=== PATIENT | female | born 1975 | race Caucasian/White ===

== ENCOUNTER 2018-10-18 20:17 | Emergency (ER) | payer OTHER ==
[2018-10-18] MEDS ORDERED: Sodium Chloride 0.9% 10 ML Syringe FLUSH PRN (20:29)
[2018-10-18] MEDS ORDERED: Ondansetron 4 MG/2 ML SDV IVPUSH ONE (20:29)
[2018-10-18] MEDS ORDERED: Sodium Chloride 0.9% 1,000 ML IV ONE (20:29)
[2018-10-18] MEDS ORDERED: Sodium Chloride 0.9% 2.5 ML Syringe FLUSH PRN (20:29)
[2018-10-18] MEDS ORDERED: Morphine 2 MG/ML Syringe IVPUSH ONE (20:29)
[2018-10-18] MEDS ORDERED: Ketorolac 30 MG/ML SDV IVPUSH ONE (20:29)
--- NOTE | 2018-10-18 20:34 | EDM.PDOC ---
ED HPI GENERAL MEDICAL PROBLEM - General Chief Complaint: Abdominal Pain Stated Complaint: PAIN ON THE RT SIDE Time Seen by Provider: 10/18/18 20:24 - History of Present Illness INITIAL COMMENTS - FREE TEXT/NARRATIVE: HISTORY AND PHYSICAL: History of present illness: The patient is a 43-year-old female with a history of a cholecystectomy and a bilateral tubal ligation but no other GI or gynecologic problems and presents with onset of periumbilical and right lower quadrant pain this afternoon. The patient said that starting 2 days ago she had some discomfort on the right side that she thought might be a urinary tract infection and she was in the clinic today seeing Dr. Jenkins for an annual visit and had a UA which was negative. Patient said that during her pelvic exam she had no tenderness in the uterus or the adnexa and he did not comment that there was anything abnormal on his exam. She went and did some things at her child's school and then suddenly had onset of periumbilical pain pain near her old gallbladder incisions /and pain just above her umbilicus which doubled her over and then seemed to let up and now the pain has been constant in the periumbilical area and radiation to the right lower quadrant. She has no flank pain and no urinary complaints such as dysuria frequency or urgency. She had nausea this evening without vomiting and she says she has had a low-grade temp of 99 at home. She has had some cough and cold symptoms but nothing significant. Review of systems: As per history of present illness and below otherwise all systems reviewed and negative. Past medical history: As per history of present illness and as reviewed below otherwise noncontributory. Surgical history: As per history of present illness and as reviewed below otherwise noncontributory. Social history: No reported history of drug or alcohol abuse. Family history: As per history of present illness and as reviewed below otherwise noncontributory. Physical exam: General: Well-developed well-nourished female who is nontoxic and vital signs were noted by me HEENT: Atraumatic, normocephalic, negative for conjunctival pallor or scleral icterus, mucous membranes moist, throat clear, neck supple, nontender, trachea midline. Lungs: Clear to auscultation, breath sounds equal bilaterally, chest nontender. Heart: S1S2, regular rate and rhythm no overt murmurs Abdomen: Soft, nondistended, bowel sounds are slightly hypoactive and there is some tympany on percussion on the right side without rebound or guarding. On palpation there is some mild tenderness in the periumbilical area and the right lower quadrant without rebound or guarding. Negative for masses or hepatosplenomegaly. Negative for costovertebral tenderness. Pelvis: Stable nontender. Genitourinary: Deferred. Rectal: Deferred. Extremities: Atraumatic, negative for cords or calf pain. Neurovascular unremarkable. Neuro: Awake, alert, oriented. Cranial nerves II through XII unremarkable. Cerebellum unremarkable. Motor and sensory unremarkable throughout. Exam nonfocal. Diagnostics: CBC CMP UA with reflex CT scan of the abdomen and pelvis Therapeutics: IV fluids Toradol morphine and Zofran She is aware of testing results and need for follow-up with Dr. Jenkins and over- the-counter meds she can use. Impression: Right lower abdominal pain/ovarian cyst Definitive disposition and diagnosis as appropriate pending reevaluation and review of above. abdominal Pain Score (Numeric/FACES): 8 - Related Data Allergies Allergy/AdvReac Type Severity Reaction Status Date / Time Penicillins Allergy Arrhythmias Verified 10/18/18 20:20 Home Meds: Home Meds . 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: Musculoskeletal History: Reports: None Neurological History: Reports: None Psychiatric History: Reports: None Endocrine/Metabolic History: Reports: None Hematologic History: Reports: None Dermatologic History: Reports: None - Infectious Disease History Infectious Disease History: Reports: Chicken Pox - Past Surgical History GI Surgical History: Reports: Cholecystectomy Social & Family History - Family History Family Medical History: Noncontributory - Tobacco Use Smoking Status *Q: Current Some Day Smoker Years of Tobacco use: 10 Packs/Tins Daily: 0.1 - Caffeine Use Caffeine Use: Reports: Coffee - Recreational Drug Use Recreational Drug Use: No ED ROS GENERAL - Review of Systems Review Of Systems: ROS reveals no pertinent complaints other than HPI. ED EXAM, GENERAL - Physical Exam Exam: See Below (See dictation) Course - Vital Signs Last Recorded V/S: Last Vital Signs Temp 36.7 C 10/18/18 22:25 Pulse 81 05/13/19 22:25 Resp 18 10/18/18 22:25 BP 112/73 10/18/18 22:25 Pulse Ox 98 10/18/18 22:25 - Orders/Labs/Meds Orders: Active Orders 24 hr Category Date Time Status Sodium Chloride 0.9% [Saline Flush] Med 10/18/18 20:29 Active 10 ml FLUSH ASDIRECTED PRN Sodium Chloride 0.9% [Saline Flush] Med 10/18/18 20:29 Active 2.5 ml FLUSH ASDIRECTED PRN Saline Lock Insert [OM.PC] Stat Oth 10/18/18 20:29 Ordered Medication Orders Sodium Chloride (Saline Flush) 10 ml FLUSH ASDIRECTED PRN PRN Reason: Keep Vein Open Sodium Chloride (Saline Flush) 2.5 ml FLUSH ASDIRECTED PRN PRN Reason: Keep Vein Open Labs: Laboratory Tests 10/18/18 10/18/18 10/18/18 Range/Units 20:25 20:35 20:35 WBC 5.33 (4.0-11.0) K/uL RBC 4.27 L (4.30-5.90) M/uL Hgb 13.0 (12.0-16.0) g/dL Hct 39.1 (36.0-46.0) % MCV 91.6 (80.0-98.0) fL MCH 30.4 (27.0-32.0) pg MCHC 33.2 (31.0-37.0) g/dL RDW Std Deviation 45.1 (28.0-62.0) fl RDW Coeff of Ana 13 (11.0-15.0) % Plt Count 251 (150-400) K/uL MPV 10.40 (7.40-12.00) fL Neut % (Auto) 51.8 (48.0-80.0) % Lymph % (Auto) 34.5 (16.0-40.0) % Bee % (Auto) 13.1 (0.0-15.0) % Eos % (Auto) 0.2 (0.0-7.0) % Baso % (Auto) 0.4 (0.0-1.5) % Neut # (Auto) 2.8 (1.4-5.7) K/uL Lymph # (Auto) 1.8 (0.6-2.4) K/uL Bee # (Auto) 0.7 (0.0-0.8) K/uL Eos # (Auto) 0.0 (0.0-0.7) K/uL Baso # (Auto) 0.0 (0.0-0.1) K/uL Nucleated RBC % 0.0 /100WBC Nucleated RBCs # 0 K/uL Sodium 143 (136-145) mmol/L Potassium 3.6 (3.5-5.1) mmol/L Chloride 105 (98-107) mmol/L Carbon Dioxide 24.0 (21.0-32.0) mmol/L BUN 9 (7.0-18.0) mg/dL Creatinine 0.7 (0.6-1.0) mg/dL Est Cr Clr Drug Dosing 84.84 mL/min Estimated GFR (MDRD) > 60.0 ml/min Glucose 121 H (74-106) mg/dL Calcium 9.1 (8.5-10.1) mg/dL Total Bilirubin 0.3 (0.2-1.0) mg/dL AST 11 L (15-37) IU/L ALT 21 (14-63) IU/L Alkaline Phosphatase 39 L (46-116) U/L Total Protein 8.0 (6.4-8.2) g/dL Albumin 4.5 (3.4-5.0) g/dL Globulin 3.5 (2.6-4.0) g/dL Albumin/Globulin Ratio 1.3 (0.9-1.6) Urine Color YELLOW Urine Appearance CLEAR Urine pH 5.5 (5.0-8.0) Ur Specific [place] <= 1.005 (1.001-1.035) Urine Protein NEGATIVE (NEGATIVE) mg/dL Urine Glucose (UA) NEGATIVE (NEGATIVE) mg/dL Urine Ketones NEGATIVE (NEGATIVE) mg/dL Urine Occult Blood NEGATIVE (NEGATIVE) Urine Nitrite NEGATIVE (NEGATIVE) Urine Bilirubin NEGATIVE (NEGATIVE) Urine Urobilinogen 0.2 (<2.0) EU/dL Ur Leukocyte Esterase NEGATIVE (NEGATIVE) Meds: Medications Generic Name Dose Route Start Last Admin Trade Name Freq PRN Reason Stop Dose Admin Sodium Chloride 10 ml 10/18/18 20:29 Saline Flush FLUSH ASDIRECTED PRN Keep Vein Open Sodium Chloride 2.5 ml 10/18/18 20:29 Saline Flush FLUSH ASDIRECTED PRN Keep Vein Open Discontinued Medications Generic Name Dose Route Start Last Admin Trade Name [place] PRN Reason Stop Dose Admin Sodium Chloride 1,000 mls @ 999 mls/hr 10/18/18 20:29 10/18/18 20:36 Normal Saline IV 10/18/18 21:29 999 mls/hr STAT ONE Administration Iopamidol 100 ml 10/18/18 21:59 10/18/18 22:00 Isovue Multipack-370 (76%) IVPUSH 10/18/18 22:00 100 ml ONETIME STA Administration Ketorolac Tromethamine 30 mg 10/18/18 20:29 10/18/18 20:36 Toradol IVPUSH 10/18/18 20:30 30 mg ONETIME ONE Administration Morphine Sulfate 2 mg 10/18/18 20:29 10/18/18 20:36 Morphine IVPUSH 10/18/18 20:30 2 mg ONETIME ONE Administration Ondansetron HCl 4 mg 10/18/18 20:29 10/18/18 20:36 Zofran IVPUSH 10/18/18 20:30 4 mg ONETIME ONE Administration Departure - Departure Time of Disposition: 22:33 Disposition: Home, Self-Care 01 Condition: Good Clinical Impression: Abdominal pain Qualifiers: Abdominal location: right lower quadrant Qualified Code(s): R10.31 - Right lower quadrant pain Ovarian cyst Qualifiers: Laterality: right Qualified Code(s): N83.201 - Unspecified ovarian cyst, right side - Discharge Information Referrals: PCP,None [Primary Care Provider] - Forms: ED Department Discharge Additional Instructions: The following information is given to patients seen in the emergency department who are being discharged to home. This information is to outline your options for follow-up care. We provide all patients seen in our emergency department with a follow-up referral. The need for follow-up, as well as the timing and circumstances, are variable depending upon the specifics of your emergency department visit. If you don't have a primary care physician on staff, we will provide you with a referral. We always advise you to contact your personal physician following an emergency department visit to inform them of the circumstance of the visit and for follow-up with them and/or the need for any referrals to a consulting specialist. The emergency department will also refer you to a specialist when appropriate. This referral assures that you have the opportunity for followup care with a specialist. All of these measure are taken in an effort to provide you with optimal care, which includes your followup. Under all circumstances we always encourage you to contact your private physician who remains a resource for coordinating your care. When calling for followup care, please make the office aware that this follow-up is from your recent emergency room visit. If for any reason you are refused follow-up, please contact the [facility] emergency department at and ask to speak to the emergency department charge nurse. [facility] [address] [address] Push hydration and use [id number] Aleve/Naprosyn for pain management as well as Tylenol if needed. Please call and schedule a follow-up appointment in the clinic to reevaluate this cyst in 4-6 weeks. Eat a bland diet for the next 24 hours and return to ER as needed and as discussed - My Orders Last 24 Hours: My Active Orders 10/18/18 20:29 Sodium Chloride 0.9% [Saline Flush] 10 ml FLUSH ASDIRECTED PRN Sodium Chloride 0.9% [Saline Flush] 2.5 ml FLUSH ASDIRECTED PRN Saline Lock Insert [OM.PC] Stat - Assessment/Plan Last 24 Hours: My Active Orders 10/18/18 20:29 Sodium Chloride 0.9% [Saline Flush] 10 ml FLUSH ASDIRECTED PRN Sodium Chloride 0.9% [Saline Flush] 2.5 ml FLUSH ASDIRECTED PRN Saline Lock Insert [OM.PC] Stat
[2018-10-18 21:12] LABS: CHLORIDE,CL 105 mmol/L (98-107); SODIUM,NA 143 mmol/L (136-145)
[2018-10-18] MEDS ORDERED: Iopamidol 755 MG/ML 500 ML Multipack Bottle IVPUSH STA (21:59)
[2018-10-18 22:25] VITALS: BP 112/73
--- NOTE | 2018-10-18 22:30 | CT ---
INDICATION: Umbilical and right lower quadrant pain for 3 days TECHNIQUE: CT abdomen and pelvis acquired with 100 cc Isovue 370 IV contrast. COMPARISON: None FINDINGS: Lower chest: Unremarkable. Liver: Unremarkable. Spleen: Unremarkable. Pancreas: Unremarkable. Gallbladder and bile ducts: Status post cholecystectomy. Adrenal glands: Unremarkable. Kidneys: Unremarkable. GI tract: Unremarkable. Appendix is normal. Vascular structures: Unremarkable. Lymph nodes: Unremarkable. Miscellaneous: Unremarkable. No free air or significant free fluid. Pelvic Organs: 1.9 cm cystic lesion in the right adnexa. Bones: Unremarkable for age. IMPRESSION: Normal appendix. No acute intra-abdominal inflammatory process identified. Cystic lesion in the right adnexa may represent a physiologic ovarian cyst. Consider pelvic ultrasound for further evaluation if clinically indicated. Status post cholecystectomy. Please note that all CT scans at this facility use dose modulation, iterative reconstruction, and/or weight-based dosing when appropriate to reduce radiation dose to as low as reasonably achievable. Dictated by Alanis Miranda MD @ Oct 18 2018 10:20PM Signed by Dr. Alanis Miranda @ Oct 18 2018 10:27PM
== END 2018-10-18 22:45 | disposition home or self-care (01) ==
LOC: MW.ED 20:17
DX: N83.201 Unspecified ovarian cyst, right side (principal); F17.210 Nicotine dependence, cigarettes, uncomplicated; Z88.0 Allergy status to penicillin
CPT/HCPCS: 36415; 74177; 80053; 81003; 85025; 96361; 96374; 96375; 99284; J1885; J2270; J2405; J7040; Q9967

== ENCOUNTER 2019-12-01 10:50 | Day surgery (SDC) | payer BC, OTHER ==
[~2019-12-01 10:50] MED LIST: Lactated Ringers 1,000 ML IV SCH; Sodium Chloride 0.9% 10 ML SDV IV PRN; Sodium Chloride 0.9% 10 ML Syringe FLUSH PRN; Sodium Chloride 0.9% 2.5 ML Syringe FLUSH PRN
--- NOTE | 2019-12-01 12:32 | PCM.PREANE ---
Preanesthetic Assessment - Anesthesia/Transfusion/Family Hx Anesthesia History: Prior Anesthesia Without Reaction Family History of Anesthesia Reaction: No Transfusion History: No Prior Transfusion(s) Intubation History: Unknown - Review of Systems General: No Symptoms Pulmonary: No Symptoms Cardiovascular: No Symptoms Gastrointestinal: Abdominal Pain, Other (change in bowel habbits) Neurological: No Symptoms Other: Reports: None - Physical Assessment Vital Signs: Last Vital Signs Temp 37.3 C 12/01/19 11:23 Pulse 106 H 12/01/19 11:23 Resp 16 12/01/19 11:23 BP 125/84 12/01/19 11:23 Pulse Ox 7 L 12/01/19 11:23 Height: 1.6 m Weight: 54.431 kg ASA Class: 2 Mental Status: Alert & Oriented x3 Airway Class: Mallampati = 1 Dentition: Reports: Normal Dentition Thyro-Mental Finger Breadths: 3 Mouth Opening Finger Breadths: 3 ROM/Head Extension: Full Lungs: Clear to Auscultation, Normal Respiratory Effort Cardiovascular: Regular Rate, Regular Rhythm - Lab Values: Laboratory Last Values Urine HCG, Qual NEGATIVE (NEGATIVE) 12/01/19 11:00 - Allergies Allergies/Adverse Reactions: Allergies Allergy/AdvReac Type Severity Reaction Status Date / Time Penicillins Allergy Arrhythmias Verified 12/01/19 11:22 sulfamethoxazole Allergy Swelling/body Verified 12/01/19 11:22 [From Bactrim] aches trimethoprim [From Bactrim] Allergy Swelling/body Verified 12/01/19 11:22 aches - Blood Blood Available: No - Anesthesia Plan Pre-Op Medication Ordered: None - Acknowledgements Anesthesia Type Planned: MAC Pt an Appropriate Candidate for the Planned Anesthesia: Yes Alternatives and Risks of Anesthesia Discussed w Pt/Guardian: Yes Pt/Guardian Understands and Agrees with Anesthesia Plan: Yes PreAnesthesia Questionnaire HEENT History: Reports: None Cardiovascular History: Reports: Other (See Below) Other Cardiovascular History: "low blood pressure", palpatations in the past when on control pills, none sice Respiratory History: Reports: None Gastrointestinal History: Reports: GERD Other Gastrointestinal History: intermittent epigastric pain Genitourinary History: Reports: UTI, Recurrent 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: Musculoskeletal History: Reports: None Neurological History: Reports: Migraines Psychiatric History: Reports: Anxiety Endocrine/Metabolic History: Reports: None Hematologic History: Reports: None Immunologic History: Reports: None Oncologic (Cancer) History: Reports: None Dermatologic History: Reports: None - Infectious Disease History Infectious Disease History: Reports: Chicken Pox - Past Surgical History Head Surgeries/Procedures: Reports: None HEENT Surgical History: Reports: None Cardiovascular Surgical History: Reports: None Respiratory Surgical History: Reports: None GI Surgical History: Reports: Cholecystectomy Female Surgical History: Reports: Tubal Ligation Endocrine Surgical History: Reports: None Neurological Surgical History: Reports: None Musculoskeletal Surgical History: Reports: None Oncologic Surgical History: Reports: None Dermatological Surgical History: Reports: None - SUBSTANCE USE Smoking Status *Q: Light Tobacco Smoker Tobacco Use Within Last Twelve Months: Cigarettes Recreational Drug Type: Reports: Marijuana/Hashish Recreational Drug Last Use: 1 week ago - HOME MEDS Home Medications: Home Meds Esomeprazole Magnesium [Nexium] 40 mg PO DAILY 11/25/19 [History] Lactobacillus Acidophilus [Probiotic] 1 tab PO DAILY 11/25/19 [History] - CURRENT (IN HOUSE) MEDS Current Meds: Current Medications Lactated Ringer's (Ringers, Lactated) 1,000 mls @ 125 mls/hr IV ASDIRECTED BHAVIN Last Admin: 12/01/19 11:22 Dose: 125 mls/hr Documented by: Sodium Chloride (Saline Flush) 10 ml FLUSH ASDIRECTED PRN PRN Reason: Keep Vein Open Sodium Chloride (Saline Flush) 2.5 ml FLUSH ASDIRECTED PRN PRN Reason: Keep Vein Open Sodium Chloride (Saline Flush) 10 ml FLUSH ASDIRECTED PRN PRN Reason: Keep Vein Open Sodium Chloride (Saline Flush) 2.5 ml FLUSH ASDIRECTED PRN PRN Reason: Keep Vein Open Sodium Chloride (Normal Saline) 10 ml IV ASDIRECTED PRN PRN Reason: IV Use
[2019-12-01] MEDS ORDERED: Propofol 200 MG/20 ML SDV ONE (13:09)
[2019-12-01] MEDS ORDERED: Lidocaine 2% 5 ML SDV ONE (13:09)
[2019-12-01] MEDS ORDERED: fentaNYL 100 MCG/2 ML SDV ONE (13:20)
[2019-12-01] MEDS ORDERED: Midazolam 1 MG/ML 2 ML SDV ONE (13:21)
--- NOTE | 2019-12-01 14:01 | PCM.OPNOTE ---
- General Post-Op/Procedure Note Date of Surgery/Procedure: 12/01/19 Operative Procedure(s): Diagnostic EGD and colonoscopy Findings: Normal EGD and colonoscopy Pre Op Diagnosis: Change in bowel habits, reflux Post-Op Diagnosis: same Anesthesia Technique: MAC Primary Surgeon: Tami Proctor Condition: Good
--- NOTE | 2019-12-01 14:20 | PCM.POSTAN ---
POST ANESTHESIA ASSESSMENT - MENTAL STATUS Mental Status: Alert, Oriented - VITAL SIGNS Vital Signs: Last Vital Signs Temp 36.4 C 12/01/19 13:57 Pulse 77 12/01/19 14:12 Resp 18 12/01/19 14:12 BP 101/62 12/01/19 14:12 Pulse Ox 98 12/01/19 14:12 - RESPIRATORY Respiratory Status: Respiratory Rate WNL, Airway Patent, O2 Saturation Stable - CARDIOVASCULAR CV Status: Pulse Rate WNL, Blood Pressure Stable - GASTROINTESTINAL GI Status: No Symptoms - PAIN Pain Score: 0 - POST OP HYDRATION Hydration Status: Adequate & Stable - OBSERVATIONS Free Text/Narrative:: No anesthesia complications
--- NOTE | 2019-12-01 14:41 | PCM48HPAN ---
Post Anesthesia Note - EVALUATION WITHIN 48HRS OF ANESTHETIC Vital Signs in Normal Range: Yes Patient Participated in Evaluation: Yes Respiratory Function Stable: Yes Airway Patent: Yes Cardiovascular Function Stable: Yes Hydration Status Stable: Yes Pain Control Satisfactory: Yes Nausea and Vomiting Control Satisfactory: Yes Mental Status Recovered: Yes Vital Signs: Last Vital Signs Temp 36.4 C 12/01/19 13:57 Pulse 71 12/01/19 14:17 Resp 14 12/01/19 14:17 BP 104/63 12/01/19 14:17 Pulse Ox 99 12/01/19 14:17 - COMMENTS/OBSERVATIONS Free Text/Narrative:: Doing well.
[2019-12-01] MEDS ORDERED: Alum Hydrox/Mag Hydrox/Simeth 15 ML, Lidocaine 2% 5 ML PO ONE ×2 (14:59)
[2019-12-01 15:17] VITALS: BP 107/77; PULSE 75
--- NOTE | 2019-12-01 20:38 | OR ---
SURGEON: TAMI PROCTOR MD DATE OF PROCEDURE: 12/01/2019 PREOPERATIVE DIAGNOSES: Epigastric abdominal pain, change in bowel habits. POSTOPERATIVE DIAGNOSES: Epigastric abdominal pain, change in bowel habits. PROCEDURE PERFORMED: Diagnostic esophagogastroduodenoscopy and colonoscopy. PRIMARY SURGEON: Tami Proctor MD ANESTHESIA: MAC. INSTRUMENT USED: Olympus endoscope and colonoscope. EXTENT OF EXAM: To the second portion of duodenum, to the cecum. PREPARATION: Good. LIMITATIONS: None. INDICATIONS FOR EXAMINATION: The patient is a 44-year-old female who presented to my office with intermittent epigastric pain as well as a change in her bowel habits. The decision was made to proceed with diagnostic EGD and colonoscopy. The patient and I discussed the procedures, expected perioperative course; and risks including bleeding, infection, or damage to surrounding structures. She verbalized understanding and wishes to proceed. PROCEDURE IN DETAIL: The patient was brought into the endoscopy suite and placed in the left lateral decubitus position. A time-out was completed verifying the patient's name, age, date of , allergies, and procedure to be performed. Monitored anesthesia care was induced and a bite block was placed in the patient's mouth. Continuous oxygen was provided via nasal cannula throughout the procedure. After adequate sedation was achieved, a well-lubricated endoscope was placed in the patient's mouth and advanced under direct visualization to the second portion of duodenum. This appeared normal and a photograph was taken. The scope was then fully withdrawn while examining the color, texture, anatomy, and integrity of the mucosa of the upper GI tract. The duodenal mucosa appeared healthy and pink with no evidence of ulceration or inflammation. The scope was brought into the stomach and a photograph was taken of the pylorus and GE junction. Both appeared anatomically normal. The gastric mucosa appeared normal with no evidence of inflammation or ulceration. Biopsies were taken of the gastric antrum, body, and fundus and sent for histologic review and H. pylori testing. The scope was then brought into the distal esophagus. A photograph was taken of normal-appearing Z-line. The esophageal mucosa was closely inspected, but no pathology was identified. The scope was removed and this portion of procedure was terminated. A digital rectal exam was performed. This exam was within normal limits. A well-lubricated colonoscope was inserted in the rectum and advanced under direct visualization to the level of the cecum. The patient had a somewhat tortuous colon, but the cecum was reached safely. A photograph was taken of the cecal cap as well as with the scope retroflexed within the cecum. The scope was then fully withdrawn while examining the color, texture, anatomy, and integrity of the mucosa from the cecum to the anal canal. The patient's mucosa grossly appeared normal. There was a slight amount of irritation within the rectum. Biopsies were taken of the transverse colon, sigmoid colon, as well as the rectum and sent for histologic review. Otherwise, the colon appeared normal. The scope was retroflexed within the rectum to allow visualization of the anal canal opening. This appeared normal and a photograph was taken. The scope was straightened out and fully withdrawn. The cecum to anus time was 12 minutes. The patient tolerated the procedure well and was transferred to the PACU in stable condition. ENDOSCOPIC DIAGNOSES: Epigastric abdominal pain, change in bowel habits. RECOMMENDATIONS: Follow up in clinic in 2 weeks to discuss the pathology results and any further steps in treatment. ELAINE RIVERA /[id number]
== END 2019-12-01 15:00 | disposition home or self-care (01) ==
LOC: MW.SDS 10:50
PROVIDERS: ATTEND Surgery
DX: R10.13 Epigastric pain (principal); R19.4 Change in bowel habit; K21.9 Gastro-esophageal reflux disease without esophagitis; F41.9 Anxiety disorder, unspecified; F17.210 Nicotine dependence, cigarettes, uncomplicated; Z88.0 Allergy status to penicillin; Z88.2 Allergy status to sulfonamides; Z88.1 Allergy status to other antibiotic agents; Z79.899 Other long term (current) drug therapy
CPT/HCPCS: 43239; 45380; 81025; J2001; J2250; J2704; J3010; J7120; 88305; 88312

== ENCOUNTER 2023-06-27 10:08 | Emergency (ER) | payer BC ==
[2023-06-27] MEDS ORDERED: Ondansetron 4 MG/2 ML SDV IVPUSH ONE (10:45)
[2023-06-27] MEDS ORDERED: Sodium Chloride 0.9% 1,000 ML IV ONE (10:45)
[2023-06-27] MEDS ORDERED: Meclizine 25 MG Tab PO ONE (10:45)
[2023-06-27 11:14] LABS: BASOPHILS ABSOLUTE AUTO 0.01 K/uL (0.00-0.20); BASOPHILS PERCENT AUTO 0.2 % (0.0-1.0); EOSINOPHILS ABSOLUTE AUTO 0.07 K/uL (0.00-0.45); EOSINOPHILS PERCENT AUTO 1.1 % (0.0-6.0); HEMATOCRIT 34.2 % (37.0-47.0); HEMOGLOBIN 11.6 g/dL (12.0-16.0); IMMATURE GRAN ABSOLUTE AUTO 0.01 K/uL (0.00-0.05); IMMATURE GRAN PERCENT AUTO 0.2 % (0.0-0.4); LYMPHOCYTES ABSOLUTE AUTO 1.96 K/uL (1.00-4.80); LYMPHOCYTES PERCENT AUTO 31.4 % (24.0-44.0); MEAN CORPUSCULAR HEMOGLOBIN 30.5 pg (28.0-32.0); MEAN CORPUSCULAR HGB CONC 33.9 g/dL (32.0-36.0); MEAN PLATELET VOLUME 10.1 fL (9.4-12.3); MONOCYTES ABSOLUTE AUTO 0.26 K/uL (0.00-0.80); MONOCYTES PERCENT AUTO 4.2 % (0.0-8.0); NEUTROPHILS ABSOLUTE AUTO 3.94 K/uL (1.80-7.70); NEUTROPHILS PERCENT AUTO 62.9 % (41.0-71.0); PLATELET COUNT,PLT 291 K/uL (150-400); WHITE BLOOD CELL COUNT,WBC 6.25 K/uL (3.9-11.3)
[2023-06-27 11:31] LABS: INR 0.97 (0.86-1.11); PTT,PARTIAL THROMBOPLSTIN TIME 26.7 SEC (23.9-30.7)
[2023-06-27 11:46] LABS: A/G RATIO 1.3 (0.9-1.6); ALANINE AMINOTRANSFERASE,ALT 19 IU/L (14-63); ALKALINE PHOSPHATASE 41 U/L (46-116); ASPARTATE AMNIOTRANSFERASE,AST 8 IU/L (15-37); BILIRUBIN TOTAL 0.3 mg/dL (0.2-1.0); BLOOD UREA NITROGEN,BUN 11 mg/dL (7.0-18.0); CALCIUM 9.1 mg/dL (8.5-10.1); CARBON DIOXIDE,CO2 26.9 mmol/L (21.0-32.0); CHLORIDE,CL 104 mmol/L (98-107); CREATININE 0.7 mg/dL (0.6-1.0); EST CRCL DRUG DOSING (CG) 73.09 mL/min; ESTIMATED GFR 106 mL/min (>60); GLUCOSE RANDOM 106 mg/dL (74-106); POTASSIUM,K 4.1 mmol/L (3.5-5.1); PROTEIN TOTAL,TP 7.2 g/dL (6.4-8.2); SODIUM,NA 141 mmol/L (136-145); TSH ULTRASENSITIVE 0.75 uIU/mL (0.36-3.74)
[2023-06-27 11:53] LABS: CORONAVIRUS COVID-19 NAA NEGATIVE (NEGATIVE); INFLUENZA A NAA NEGATIVE (NEGATIVE); INFLUENZA B NAA NEGATIVE (NEGATIVE)
[2023-06-27] MEDS ORDERED: Iopamidol 755 MG/ML 500 ML Multipack Bottle IVPUSH STA (12:15)
[2023-06-27 13:05] VITALS: BP 104/65; PULSE 94
== END 2023-06-27 13:03 | disposition home or self-care (01) ==
LOC: MW.ED 10:08
DX: R42 Dizziness and giddiness (principal); Z20.822 Contact with and (suspected) exposure to COVID-19; Z88.2 Allergy status to sulfonamides
CPT/HCPCS: 0240U; 36415; 70450; 70496; 70498; 80053; 83735; 84443; 84484; 84703; 85025; 85610; 85730; 93005; A9270; J2405; J7030; Q9967; 93010; 96361; 96374; 99284; 99284-25

== ENCOUNTER 2023-07-02 11:27 | Emergency (ER) | payer BC ==
[2023-07-02] MEDS ORDERED: Sodium Chloride 0.9% 10 ML Syringe FLUSH PRN (11:58)
[2023-07-02] MEDS ORDERED: Sodium Chloride 0.9% 1,000 ML IV STA (11:58)
[2023-07-02] MEDS ORDERED: Sodium Chloride 0.9% 2.5 ML Syringe FLUSH PRN (11:58)
[2023-07-02 12:02] LABS: BASOPHILS ABSOLUTE AUTO 0.02 K/uL (0.00-0.20); BASOPHILS PERCENT AUTO 0.4 % (0.0-1.0); EOSINOPHILS ABSOLUTE AUTO 0.12 K/uL (0.00-0.45); EOSINOPHILS PERCENT AUTO 2.3 % (0.0-6.0); HEMATOCRIT 37.4 % (37.0-47.0); HEMOGLOBIN 12.8 g/dL (12.0-16.0); IMMATURE GRAN ABSOLUTE AUTO 0.01 K/uL (0.00-0.05); IMMATURE GRAN PERCENT AUTO 0.2 % (0.0-0.4); LYMPHOCYTES ABSOLUTE AUTO 2.08 K/uL (1.00-4.80); LYMPHOCYTES PERCENT AUTO 39.5 % (24.0-44.0); MEAN CORPUSCULAR HEMOGLOBIN 30.7 pg (28.0-32.0); MEAN CORPUSCULAR HGB CONC 34.2 g/dL (32.0-36.0); MEAN CORPUSCULAR VOLUME 89.7 fL (83.0-99.0); MONOCYTES ABSOLUTE AUTO 0.28 K/uL (0.00-0.80); MONOCYTES PERCENT AUTO 5.3 % (0.0-8.0); NEUTROPHILS ABSOLUTE AUTO 2.75 K/uL (1.80-7.70); NEUTROPHILS PERCENT AUTO 52.3 % (41.0-71.0); PLATELET COUNT,PLT 331 K/uL (150-400); RED BLOOD CELL COUNT 4.17 M/uL (4.10-5.30); WHITE BLOOD CELL COUNT,WBC 5.26 K/uL (3.9-11.3)
[2023-07-02 12:25] LABS: A/G RATIO 1.3 (0.9-1.6); ALANINE AMINOTRANSFERASE,ALT 18 IU/L (14-63); ALBUMIN 4.7 g/dL (3.4-5.0); ALKALINE PHOSPHATASE 45 U/L (46-116); ASPARTATE AMNIOTRANSFERASE,AST 10 IU/L (15-37); BILIRUBIN TOTAL 0.6 mg/dL (0.2-1.0); BLOOD UREA NITROGEN,BUN 13 mg/dL (7.0-18.0); CALCIUM 10.2 mg/dL (8.5-10.1); CARBON DIOXIDE,CO2 26.3 mmol/L (21.0-32.0); CHLORIDE,CL 103 mmol/L (98-107); CREATININE 0.8 mg/dL (0.6-1.0); EST CRCL DRUG DOSING (CG) 67.28 mL/min; GLUCOSE RANDOM 105 mg/dL (74-106); LIPASE 37 U/L (16-77); POTASSIUM,K 3.7 mmol/L (3.5-5.1); PROTEIN TOTAL,TP 8.4 g/dL (6.4-8.2); SODIUM,NA 143 mmol/L (136-145)
[2023-07-02 12:28] LABS: ESTIMATED GFR 90 mL/min (>60)
[2023-07-02 12:53] LABS: INR 0.97 (0.86-1.11); PTT,PARTIAL THROMBOPLSTIN TIME 27.9 SEC (23.9-30.7)
[2023-07-02 14:49] VITALS: BP 111/69; PULSE 100
== END 2023-07-02 14:48 | disposition home or self-care (01) ==
LOC: MW.ED 11:27
DX: R00.2 Palpitations (principal); R55 Syncope and collapse; Z90.49 Acquired absence of other specified parts of digestive tract; Z88.0 Allergy status to penicillin; Z88.2 Allergy status to sulfonamides
CPT/HCPCS: 36415; 80053; 83690; 83735; 84484; 85025; 85379; 85610; 85730; 93005; 93010; 93246; 96360; 99282; 99285-25; J3490; J7030